=== PATIENT | female | born 1995 | race American Indian/Alaskan Native ===

== ENCOUNTER 2022-06-06 11:40 | Emergency (ER) | payer SELFPAY ==
[2022-06-06 12:55] VITALS: BP 138/78
[2022-06-06] MEDS ORDERED: CYCLOBENZAPRINE 10 MG TAB PO ONE (15:00)
[2022-06-06] MEDS ORDERED: IBUPROFEN 800 MG TAB PO ONE (15:00)
[2022-06-06] MEDS ORDERED: HYDROcodone/ACETAMINOPHEN 5-325 MG TAB PO ONE (15:00)
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
== END 2022-06-06 15:42 | disposition home or self-care (01) ==
LOC: ED 11:40
DX: M54.2 Cervicalgia (principal); M54.9 Dorsalgia, unspecified; V89.2XXA Person injured in unspecified motor-vehicle accident, traffic, initial encounter; Y93.89 Activity, other specified; Y92.89 Other specified places as the place of occurrence of the external cause; Y99.8 Other external cause status
CPT/HCPCS: 99282